=== PATIENT | male | born 1995 | race Caucasian/White ===

== ENCOUNTER 2019-08-02 16:54 | Emergency (ER) | payer OTHER ==
--- NOTE | 2019-08-02 17:21 | EDM.PDOC ---
ED HPI GENERAL MEDICAL PROBLEM - General Chief Complaint: Abdominal Pain Stated Complaint: ABDOMINAL PAIN Time Seen by Provider: 08/02/19 17:18 Source of Information: Reports: Patient History Limitations: Reports: No Limitations - History of Present Illness INITIAL COMMENTS - FREE TEXT/NARRATIVE: 24-year-old male with onset of central and left-sided abdominal pain approximately 2 months ago that has been coming and going. He states that it is usually worse at that time and he doesn't really notice much to the day. However , for the past 4 days he has had fairly constant left-sided and central abdominal pain that he reports is a squeezing pain with sharp spikes he rates pain as an 8/10. He's had no nausea or vomiting. He reports that he has had normal bowel movements but did report 2-3 weeks ago with an episode of bright red blood mixed with his stool. He has had no fevers or chills. He's had no dysuria or hematuria. There really seems to be no difference in the pain from eating or drinking. He does not really have an appetite however. The pain is not radiating. It is worse with palpation and movement. There are no other associated signs or symptoms. There are no other modifying factors. Onset: Other (Onset 2 months ago with worsening over the past 4 days.) Duration: Getting Worse Location: Reports: Abdomen Quality: Reports: Sharp, Other (Compressing-type pain) Severity: Moderate (to bear) Improves with: Reports: None Worsens with: Reports: Other (Palpation), Movement Context: Reports: Other (As above) Associated Symptoms: Reports: Loss of Appetite Treatments [employer]: Reports: Other (see below) (Nothing) left abdominal pain' Pain Score (Numeric/FACES): 8 - Related Data Allergies Allergy/AdvReac Type Severity Reaction Status Date / Time No Known Allergies Allergy Verified 08/02/19 17:09 Home Meds: Home Meds Omeprazole 40 mg PO ACBREAKFAST #30 cap.sr 08/02/19 [Rx] Past Medical History - Past Health History Medical/Surgical History: Denies Medical/Surgical History - Past Surgical History Other Surgical History Comment: No previous surgeries. Social & Family History - Tobacco Use Smoking Status *Q: Current Every Day Smoker (He smokes cigarettes) Tobacco Use Comment: Patient uses a jewel nicotine pen. - Caffeine Use Caffeine Use: Reports: Energy Drinks - Alcohol Use Alcohol Use History: Yes Alcohol Use Frequency: Weekly ("On the weekends") - Recreational Drug Use Recreational Drug Use: No Other Recreational Drug Type: Denies any recreational drug use. - Living Situation & Occupation Living situation: Reports: Single Occupation: Employed (Works at [employer] in [place]) ED ROS GENERAL - Review of Systems Review Of Systems: See Below Constitutional: Reports: No Symptoms HEENT: Reports: No Symptoms Respiratory: Reports: No Symptoms Cardiovascular: Reports: No Symptoms Endocrine: Reports: No Symptoms GI/Abdominal: Reports: Abdominal Pain : Reports: No Symptoms Musculoskeletal: Reports: No Symptoms Skin: Reports: No Symptoms Neurological: Reports: No Symptoms Hematologic/Lymphatic: Reports: No Symptoms Immunologic: Reports: No Symptoms ED EXAM, GI/ABD - Physical Exam Exam: See Below Exam Limited By: No Limitations General Appearance: Alert, WD/WN, Moderate Distress Eyes: Bilateral: Normal Appearance, EOMI Ears: Normal External Exam, Hearing Grossly Normal Nose: Normal Inspection, Normal Mucosa, No Blood Throat/Mouth: Normal Voice, No Airway Compromise, Other (Somewhat dry mucous membranes) Head: Atraumatic, Normocephalic Neck: Normal Inspection, Supple, Non-Tender, Full Range of Motion Respiratory/Chest: No Respiratory Distress, Lungs Clear, Normal Breath Sounds, No Accessory Muscle Use, Chest Non-Tender Cardiovascular: Normal Peripheral Pulses, Regular Rate, Rhythm, No Murmur GI/Abdominal Exam: Normal Bowel Sounds, Soft, No Mass, Tender (In mid left quadrant and periumbilical area.) Back Exam: Normal Inspection. 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.) Lymphatic: No Adenopathy Course - Vital Signs Last Recorded V/S: Last Vital Signs Temp 36.8 C 08/02/19 18:41 Pulse 85 08/02/19 18:41 Resp 14 08/02/19 18:41 BP 131/74 08/02/19 18:41 Pulse Ox 100 08/02/19 18:41 - Orders/Labs/Meds Orders: Active Orders 24 hr Category Date Time Status Abdomen Pelvis w Cont [CT] Stat Exams 08/02/19 17:30 Taken Sodium Chloride 0.9% [Saline Flush] Med 08/02/19 17:28 Active 10 ml FLUSH ASDIRECTED PRN Peripheral IV Insertion Adult [OM.PC] Routine Oth 08/02/19 17:28 Ordered Medication Orders Sodium Chloride (Saline Flush) 10 ml FLUSH ASDIRECTED PRN PRN Reason: Keep Vein Open Last Admin: 08/02/19 18:25 Dose: 10 ml Labs: Laboratory Tests 08/02/19 08/02/19 08/02/19 Range/Units 17:40 17:40 17:40 WBC 3.7 L (4.5-12.0) X10-3/uL RBC 4.98 (4.30-5.75) x10(6)uL Hgb 15.2 (13.5-17.8) g/dL Hct 45.2 (30.0-51.3) % MCV 90.8 (80-96) fL MCH 30.4 (27.7-33.6) pg MCHC 33.5 (32.2-35.4) g/dL RDW 12.8 (11.5-15.5) % Plt Count 262 (125-369) X10(3)uL MPV 7.7 (7.4-10.4) fL Neut % (Auto) 57.9 (46-82) % Lymph % (Auto) 31.7 (13-37) % Jack % (Auto) 8.7 (4-12) % Eos % (Auto) 1 (1.0-5.0) % Baso % (Auto) 1 (0-2) % Neut # (Auto) 2.2 (1.6-8.3) # Lymph # (Auto) 1.2 (0.6-5.0) # Jack # (Auto) 0.3 (0.0-1.3) # Eos # (Auto) 0.0 (0.0-0.8) # Baso # (Auto) 0.0 (0.0-0.2) # Sodium 143 (135-145) mmol/L Potassium 3.8 (3.5-5.3) mmol/L Chloride 105 (100-110) mmol/L Carbon Dioxide 29 (21-32) mmol/L BUN 10 (7-18) mg/dL Creatinine 0.9 (0.70-1.30) mg/dL Est Cr Clr Drug Dosing 147.03 mL/min Estimated GFR (MDRD) > 60 (>60) BUN/Creatinine Ratio 11.1 (9-20) Glucose 71 L (80-116) mg/dL Calcium 9.5 (8.6-10.2) mg/dL Total Bilirubin 0.7 (0.1-1.3) mg/dL AST 27 H (5-25) IU/L ALT 22 (12-36) U/L Alkaline Phosphatase 76 (56-112) IU/L C-Reactive Protein < 0.2 L (0.5-0.9) mg/dL Total Protein 8.0 (6.0-8.0) g/dL Albumin 4.3 (3.5-5.2) g/dL Globulin 3.7 g/dL Albumin/Globulin Ratio 1.2 Amylase 61 (25-115) U/L Urine Color (YELLOW) Urine Appearance (CLEAR) Urine pH (5.0-6.5) Ur Specific [place] (1.010-1.025) Urine Protein (NEGATIVE) mg/dL Urine Glucose (UA) (NORMAL) mg/dL Urine Ketones (NEGATIVE) mg/dL Urine Occult Blood (NEGATIVE) Urine Nitrite (NEGATIVE) Urine Bilirubin (NEGATIVE) Urine Urobilinogen (NEGATIVE) mg/dL Ur Leukocyte Esterase (NEGATIVE) Urine RBC (0-5) Urine WBC (0-5) Ur Squamous Epith Cells (NS,R,O) Urine Bacteria (NS) Hyaline Casts (NS) 08/02/19 Range/Units 18:20 WBC (4.5-12.0) X10-3/uL RBC (4.30-5.75) x10(6)uL Hgb (13.5-17.8) g/dL Hct (30.0-51.3) % MCV (80-96) fL MCH (27.7-33.6) pg MCHC (32.2-35.4) g/dL RDW (11.5-15.5) % Plt Count (125-369) X10(3)uL MPV (7.4-10.4) fL Neut % (Auto) (46-82) % Lymph % (Auto) (13-37) % Jack % (Auto) (4-12) % Eos % (Auto) (1.0-5.0) % Baso % (Auto) (0-2) % Neut # (Auto) (1.6-8.3) # Lymph # (Auto) (0.6-5.0) # Jack # (Auto) (0.0-1.3) # Eos # (Auto) (0.0-0.8) # Baso # (Auto) (0.0-0.2) # Sodium (135-145) mmol/L Potassium (3.5-5.3) mmol/L Chloride (100-110) mmol/L Carbon Dioxide (21-32) mmol/L BUN (7-18) mg/dL Creatinine (0.70-1.30) mg/dL Est Cr Clr Drug Dosing mL/min Estimated GFR (MDRD) (>60) BUN/Creatinine Ratio (9-20) Glucose (80-116) mg/dL Calcium (8.6-10.2) mg/dL Total Bilirubin (0.1-1.3) mg/dL AST (5-25) IU/L ALT (12-36) U/L Alkaline Phosphatase (56-112) IU/L C-Reactive Protein (0.5-0.9) mg/dL Total Protein (6.0-8.0) g/dL Albumin (3.5-5.2) g/dL Globulin g/dL Albumin/Globulin Ratio Amylase (25-115) U/L Urine Color [place] (YELLOW) Urine Appearance Clear (CLEAR) Urine pH 5.0 (5.0-6.5) Ur Specific [place] 1.030 H (1.010-1.025) Urine Protein Trace (NEGATIVE) mg/dL Urine Glucose (UA) Normal (NORMAL) mg/dL Urine Ketones 15 H (NEGATIVE) mg/dL Urine Occult Blood Negative (NEGATIVE) Urine Nitrite Negative (NEGATIVE) Urine Bilirubin Small H (NEGATIVE) Urine Urobilinogen Normal (NEGATIVE) mg/dL Ur Leukocyte Esterase Negative (NEGATIVE) Urine RBC 0-5 (0-5) Urine WBC 0-5 (0-5) Ur Squamous Epith Cells Few H (NS,R,O) Urine Bacteria Few H (NS) Hyaline Casts Few H (NS) Meds: Medications Generic Name Dose Route Start Last Admin Trade Name Freq PRN Reason Stop Dose Admin Sodium Chloride 10 ml 08/02/19 17:28 08/02/19 18:25 Saline Flush FLUSH 10 ml ASDIRECTED PRN Administration Keep Vein Open Discontinued Medications Generic Name Dose Route Start Last Admin Trade Name F[place]ussell PRN Reason Stop Dose Admin Sodium Chloride 1,000 mls @ 999 mls/hr 08/02/19 17:29 08/02/19 17:44 Normal Saline IV 08/02/19 18:29 999 mls/hr .BOLUS ONE Administration Iopamidol 100 ml 08/02/19 18:25 08/02/19 18:33 Isovue-370 (76%) IV 08/02/19 18:26 92 ml . DIRECTED ONE Administration Ketorolac Tromethamine 30 mg 08/02/19 18:15 08/02/19 18:21 Toradol IVPUSH 08/02/19 18:16 30 mg ONETIME ONE Administration Metoclopramide HCl 10 mg 08/02/19 17:29 08/02/19 17:44 Reglan IVPUSH 08/02/19 17:30 10 mg ONETIME ONE Administration - Re-Assessments/Exams Free Text/Narrative Re-Assessment/Exam: 08/02/19 18:10: Patient reports that his pain is unchanged. He has remained vitally stable. Patient will be going to CT for CT of abdomen and pelvis soon. Laboratory tests are thus far reassuringly normal. I will give the patient Toradol 30 mg IV. 08/02/19 19:11: Pain is now a 4-5/10. Pulse rate is down into the 80s. The CT scan of his abdomen and pelvis showed no acute abnormality per the radiologist. I am unsure of the cause of the patient's pain but I am going to place him on Prilosec as a trial and I have referred him to Jeny Harris NP. Departure - Departure Time of Disposition: 19:15 Disposition: Home, Self-Care 01 Condition: Good (Stable) Clinical Impression: Abdominal pain of unknown etiology - Discharge Information Prescriptions: Omeprazole 40 mg PO ACBREAKFAST #30 cap.sr Instructions: Abdominal Pain, Adult, [id number] Referrals: Jeny Harris NP [Physician] - Forms: ED Department Discharge Additional Instructions: Your blood tests were reassuringly normal. Your urine test was normal. The CT scan of your abdomen and pelvis was normal and did not show the cause of your pain. I am unsure why you are having the abdominal pain. As we discussed, it could be something related to your stomach or your intestines. I am placing you on a medication called Prilosec as a trial of therapy. I have also referred you to Jeny Harris NP. They should call you with an appointment this coming week. Back to the emergency department for unrelenting vomiting, fever, worsening abdominal pain or any other concerning sign or symptom. - My Orders Last 24 Hours: My Active Orders 08/02/19 17:28 Sodium Chloride 0.9% [Saline Flush] 10 ml FLUSH ASDIRECTED PRN Peripheral IV Insertion Adult [OM.PC] Routine 08/02/19 17:30 Abdomen Pelvis w Cont [CT] Stat - Assessment/Plan Last 24 Hours: My Active Orders 08/02/19 17:28 Sodium Chloride 0.9% [Saline Flush] 10 ml FLUSH ASDIRECTED PRN Peripheral IV Insertion Adult [OM.PC] Routine 08/02/19 17:30 Abdomen Pelvis w Cont [CT] Stat
[2019-08-02] MEDS ORDERED: Sodium Chloride 0.9% 10 ML Syringe FLUSH PRN (17:28)
[2019-08-02] MEDS ORDERED: Metoclopramide 10 MG/2 ML SDV IVPUSH ONE (17:29)
[2019-08-02] MEDS ORDERED: Sodium Chloride 0.9% 1,000 ML IV ONE (17:29)
[2019-08-02] MEDS ORDERED: Ketorolac 30 MG/ML SDV IVPUSH ONE (18:15)
[2019-08-02] MEDS ORDERED: Iopamidol 755 Mg/ML 100 ML Bottle IV ONE (18:25)
[2019-08-02] MEDS ORDERED: Pantoprazole 40 MG Vial IVPUSH ONE (19:12)
== END 2019-08-02 19:44 | disposition home or self-care (01) ==
LOC: FB.ED 16:54
DX: R10.33 Periumbilical pain (principal); R10.12 Left upper quadrant pain; F17.210 Nicotine dependence, cigarettes, uncomplicated
CPT/HCPCS: 36415; 74177; 80053; 81001; 82150; 85025; 86140; 96361; 96374; 96375; 99284; C9113; J1885; J2765; J7030; Q9967

== ENCOUNTER 2019-12-19 17:23 | Emergency (ER) | payer OTHER ==
[2019-12-19] MEDS ORDERED: LORazepam 1 MG Tab PO ONE (17:47)
--- NOTE | 2019-12-19 18:07 | EDM.PDOC ---
ED HPI GENERAL MEDICAL PROBLEM - General Chief Complaint: General Stated Complaint: HARD TIME BREATHING Time Seen by Provider: 12/19/19 18:01 Source of Information: Reports: Patient History Limitations: Reports: No Limitations - History of Present Illness INITIAL COMMENTS - FREE TEXT/NARRATIVE: Presents with palpitations and shortness of breath x 40 min, onset after smoking marijuana. Has prior h/o anxiety and panic attacks, but does not take medication. Denies chest pain or prior h/o heart disease. He admits drinking alcohol last night, usually drinks just on the weekends. He smokes cigarettes and admits to inhaling cocaine @2 weeks ago. He has had these symptoms in the past due to anxiety. Onset: Sudden Onset Date: 12/19/19 Severity: Moderate Associated Symptoms: Denies: Chest Pain - Related Data Allergies Allergy/AdvReac Type Severity Reaction Status Date / Time No Known Allergies Allergy Verified 12/19/19 19:12 Home Meds: Home Meds Omeprazole 40 mg PO ACBREAKFAST #30 cap.sr 08/02/19 [Rx] LORazepam [Ativan] 1 mg PO Q12H PRN #10 tab 12/19/19 [Rx] Naproxen Sodium [Naproxen Sodium Cr] 500 mg PO DAILY #7 tbmp.24hr 12/19/19 [Rx] Past Medical History Psychiatric History: Reports: Anxiety, Panic Attack - Past Surgical History Other Surgical History Comment: No previous surgeries. Social & Family History - Family History Family Medical History: Noncontributory - Tobacco Use Smoking Status *Q: Current Every Day Smoker Tobacco Use Within Last Twelve Months: Cigarettes - Caffeine Use Caffeine Use: Reports: Energy Drinks - Alcohol Use Alcohol Use History: Yes Alcohol Use Frequency: Weekly - Recreational Drug Use Recreational Drug Use: Yes Drug Use in Last 12 Months: Yes Recreational Drug Type: Reports: Cocaine, Marijuana/Hashish Recreational Drug Use Frequency: Rarely - Living Situation & Occupation Living situation: Reports: Single Occupation: Employed (Works at [employer] in [place]) ED ROS GENERAL - Review of Systems Review Of Systems: Comprehensive ROS is negative, except as noted in HPI. ED EXAM, GENERAL - Physical Exam Exam: See Below Exam Limited By: No Limitations General Appearance: Alert, WD/WN, No Apparent Distress, Anxious Throat/Mouth: No Airway Compromise Head: Atraumatic, Normocephalic Neck: Full Range of Motion Respiratory/Chest: No Respiratory Distress, Lungs Clear, Normal Breath Sounds Cardiovascular: Regular Rate, Rhythm, No Murmur GI/Abdominal: Non-Tender, No Distention Back Exam: Full Range of Motion Extremities: Normal Range of Motion Neurological: Alert, Oriented, Normal Cognition Psychiatric: Anxious Skin Exam: Warm, Dry, Intact EKG INTERPRETATION EKG Date: 12/19/19 Time: 18:05 Rhythm: NSR Rate (Beats/Min): 83 [place]: Normal P-Wave: Present QRS: Other (LAFB) ST-T: Elevated (suggesting pericarditis) QT: Normal Comparison: NA - No Prior EKG Course - Vital Signs Last Recorded V/S: Last Vital Signs Temp 36.9 C 12/19/19 17:45 Pulse 99 12/19/19 17:45 Resp 19 12/19/19 17:45 BP 144/73 H 12/19/19 17:45 Pulse Ox 100 12/19/19 17:45 - Orders/Labs/Meds Orders: Active Orders 24 hr Category Date Time Status EKG Documentation Completion [RC] ASDIRECTED Care 12/19/19 17:47 Active Chest 2V [CR] Stat Exams 12/19/19 17:47 Taken Sodium Chloride 0.9% [Saline Flush] Med 12/19/19 20:32 Active 10 ml FLUSH ASDIRECTED PRN EKG 12 Lead [EK] Stat Ther 12/19/19 17:46 Ordered Medication Orders Sodium Chloride (Saline Flush) 10 ml FLUSH ASDIRECTED PRN PRN Reason: IV Use Last Admin: 12/19/19 20:30 Dose: 10 ml Labs: Laboratory Tests 12/19/19 12/19/19 12/19/19 Range/Units 18:00 18:00 18:00 WBC 4.6 (4.5-12.0) X10-3/uL RBC 4.74 (4.30-5.75) x10(6)uL Hgb 14.3 (13.5-17.8) g/dL Hct 43.0 (30.0-51.3) % MCV 90.7 (80-96) fL MCH 30.3 (27.7-33.6) pg MCHC 33.4 (32.2-35.4) g/dL RDW 12.2 (11.5-15.5) % Plt Count 233 (125-369) X10(3)uL MPV 7.5 (7.4-10.4) fL Neut % (Auto) 56.9 (46-82) % Lymph % (Auto) 32.3 (13-37) % [place] % (Auto) 8.7 (4-12) % Eos % (Auto) 1 (1.0-5.0) % Baso % (Auto) 1 (0-2) % Neut # (Auto) 2.6 (1.6-8.3) # Lymph # (Auto) 1.5 (0.6-5.0) # [place] # (Auto) 0.4 (0.0-1.3) # Eos # (Auto) 0.1 (0.0-0.8) # Baso # (Auto) 0.0 (0.0-0.2) # PT (8.7-11.1) INR (0.89-1.13) APTT (24.4-33.2) SECONDS D-Dimer, Quantitative (0.0-0.59) mg/LFEU Sodium 143 (135-145) mmol/L Potassium 3.4 L (3.5-5.3) mmol/L Chloride 103 (100-110) mmol/L Carbon Dioxide 31 (21-32) mmol/L BUN 11 (7-18) mg/dL Creatinine 1.1 (0.70-1.30) mg/dL Est Cr Clr Drug Dosing TNP Estimated GFR (MDRD) > 60 (>60) BUN/Creatinine Ratio 10.0 (9-20) Glucose 78 L (80-116) mg/dL Calcium 9.3 (8.6-10.2) mg/dL Magnesium (1.8-2.5) mg/dL Total Bilirubin 0.5 (0.1-1.3) mg/dL AST 21 D (5-25) IU/L ALT 16 D (12-36) U/L Alkaline Phosphatase 77 (56-112) IU/L Troponin I < 0.017 L (<0.017-0.056) ng/mL Total Protein 7.8 (6.0-8.0) g/dL Albumin 4.4 (3.5-5.2) g/dL Globulin 3.4 g/dL Albumin/Globulin Ratio 1.3 12/19/19 12/19/19 12/19/19 Range/Units 18:00 19:10 21:03 WBC (4.5-12.0) X10-3/uL RBC (4.30-5.75) x10(6)uL Hgb (13.5-17.8) g/dL Hct (30.0-51.3) % MCV (80-96) fL MCH (27.7-33.6) pg MCHC (32.2-35.4) g/dL RDW (11.5-15.5) % Plt Count (125-369) X10(3)uL MPV (7.4-10.4) fL Neut % (Auto) (46-82) % Lymph % (Auto) (13-37) % [place] % (Auto) (4-12) % Eos % (Auto) (1.0-5.0) % Baso % (Auto) (0-2) % Neut # (Auto) (1.6-8.3) # Lymph # (Auto) (0.6-5.0) # [place] # (Auto) (0.0-1.3) # Eos # (Auto) (0.0-0.8) # Baso # (Auto) (0.0-0.2) # PT 10.4 (8.7-11.1) INR 1.07 (0.89-1.13) APTT 24.3 L (24.4-33.2) SECONDS D-Dimer, Quantitative 0.37 (0.0-0.59) mg/LFEU Sodium (135-145) mmol/L Potassium (3.5-5.3) mmol/L Chloride (100-110) mmol/L Carbon Dioxide (21-32) mmol/L BUN (7-18) mg/dL Creatinine (0.70-1.30) mg/dL Est Cr Clr Drug Dosing Estimated GFR (MDRD) (>60) BUN/Creatinine Ratio (9-20) Glucose (80-116) mg/dL Calcium (8.6-10.2) mg/dL Magnesium 1.6 L (1.8-2.5) mg/dL Total Bilirubin (0.1-1.3) mg/dL AST (5-25) IU/L ALT (12-36) U/L Alkaline Phosphatase (56-112) IU/L Troponin I < 0.017 L (<0.017-0.056) ng/mL Total Protein (6.0-8.0) g/dL Albumin (3.5-5.2) g/dL Globulin g/dL Albumin/Globulin Ratio Meds: Medications Generic Name Dose Route Start Last Admin Trade Name Freq PRN Reason Stop Dose Admin Sodium Chloride 10 ml 12/19/19 20:32 12/19/19 20:30 Saline Flush FLUSH 10 ml ASDIRECTED PRN Administration IV Use Discontinued Medications Generic Name Dose Route Start Last Admin Trade Name Freq PRN Reason Stop Dose Admin Magnesium Sulfate 1 gm/ 52 mls @ 100 mls/hr 12/19/19 18:57 12/19/19 20:02 Dextrose/Water IV 12/19/19 19:28 100 mls/hr ONETIME ONE Administration Ketorolac Tromethamine 30 mg 12/19/19 19:41 12/19/19 19:50 Toradol IVPUSH 12/19/19 19:42 30 mg ONETIME ONE Administration Lorazepam 1 mg 12/19/19 17:47 12/19/19 18:10 Ativan PO 12/19/19 17:48 1 mg ONETIME ONE Administration Potassium Chloride 40 meq 12/19/19 18:58 12/19/19 19:06 Klor-Con M20 PO 12/19/19 18:59 40 meq ONETIME ONE Administration - Radiology Interpretation Free Text/Narrative:: CXR: No acute process. (ED provider interpretation) - Re-Assessments/Exams Free Text/Narrative Re-Assessment/Exam: 12/19/19 21:34 Symptoms improved after Ativan 1mg PO and further improved after Toradol 30mg IV. Patient denied chest pain or discomfort throughout ED stay. Differential diagnosis includes Anxiety and Pericarditis. Departure - Departure Time of Disposition: 21:36 Disposition: Home, Self-Care 01 Condition: Good Clinical Impression: Anxiety Pericarditis Qualifiers: Pericarditis type: unspecified type Chronicity: acute Qualified Code(s): I30.9 - Acute pericarditis, unspecified - Discharge Information *PRESCRIPTION DRUG MONITORING PROGRAM REVIEWED*: Yes *COPY OF PRESCRIPTION DRUG MONITORING REPORT IN PATIENT MYRTLE: Not Applicable Prescriptions: LORazepam [Ativan] 1 mg PO Q12H PRN #10 tab PRN Reason: Anxiety Naproxen Sodium [Naproxen Sodium Cr] 500 mg PO DAILY #7 tbmp.24hr Instructions: Generalized Anxiety Disorder, Adult, Pericarditis Referrals: PCP,None [Primary Care Provider] - Forms: ED Department Discharge Additional Instructions: Fill prescriptions for Naproxen and Ativan and take as directed. Avoid illicit drug use. Limit alcohol intake. Take a Multivitamin daily. Follow up with your primary physician in 2-3 days. Return to the ER if symptoms worsen. Sepsis Event Note - Evaluation Sepsis Screening Result: No Definite Risk - Focused Exam Vital Signs: Vital Signs Temp Pulse Resp BP Pulse Ox 12/19/19 17:45 36.9 C 99 19 144/73 H 100 Date Exam was Performed: 12/19/19 Time Exam was Performed: 21:32 - My Orders Last 24 Hours: My Active Orders 12/19/19 17:46 EKG 12 Lead [EK] Stat 12/19/19 17:47 EKG Documentation Completion [RC] ASDIRECTED Chest 2V [CR] Stat 12/19/19 20:32 Sodium Chloride 0.9% [Saline Flush] 10 ml FLUSH ASDIRECTED PRN - Assessment/Plan Last 24 Hours: My Active Orders 12/19/19 17:46 EKG 12 Lead [EK] Stat 12/19/19 17:47 EKG Documentation Completion [RC] ASDIRECTED Chest 2V [CR] Stat 12/19/19 20:32 Sodium Chloride 0.9% [Saline Flush] 10 ml FLUSH ASDIRECTED PRN
[2019-12-19] MEDS ORDERED: Potassium Chloride 20 MEQ Tab.ER PO ONE (18:58)
[2019-12-19] MEDS ORDERED: Ketorolac 30 MG/ML SDV IVPUSH ONE (19:41)
[2019-12-19] MEDS ORDERED: Sodium Chloride 0.9% 10 ML Syringe FLUSH PRN (20:32)
--- NOTE | 2019-12-21 12:30 | CR ---
INDICATION: Short of breath. CHEST, 2 VIEWS: Two PA views and two lateral views of the chest were obtained, 12/19/19 - no comparisons. Overlying EKG leads are noted. The heart, mediastinum and bony thorax are unremarkable. An active infiltrate or effusion was not identified. However, there was mild bronchial wall cuffing at the lung bases, which may be on the basis of active peribronchial disease, and should be correlate clinically. MTDD
== END 2019-12-19 22:05 | disposition home or self-care (01) ==
LOC: FB.ED 17:23
DX: I30.9 Acute pericarditis, unspecified (principal); F41.9 Anxiety disorder, unspecified; F17.210 Nicotine dependence, cigarettes, uncomplicated
CPT/HCPCS: 36415; 71046; 80053; 83735; 84484; 85025; 85379; 85610; 85730; 93005; 96365; 96372; 96375; 99285-25; A9270-GY; J1885; J3475; J7060